=== PATIENT | female | born 1990 | race Caucasian/White ===

== ENCOUNTER 2016-08-30 13:27 | Emergency (ER) | payer OTHER ==
[2016-08-30 14:10] LABS: BILIRUBIN NEGATIVE (NEGATIVE); BLOOD NEGATIVE Ery/uL (NEGATIVE); CLARITY CLEAR (CLEAR); COLOR YELLOW (YELLOW); GLUCOSE (U) NORMAL (NORMAL); KETONE (U) NEGATIVE (NEGATIVE); LEUKOCYTES TRACE Leu/uL (NEGATIVE); NITRITE NEGATIVE (NEGATIVE); PROTEIN NEGATIVE (NEGATIVE); SPECIFIC GRAVITY 1.025 (1.001-1.030); UROBILINOGEN 0.2 mg/dL (0.2-1.0)
[2016-08-30 14:20] LABS: BASOPHIL 0.6 % (0-2); EOSINOPHIL 7.9 % (0-5); HCT 39.3 % (37.0-47.0); HGB 13.2 g/dl (12.5-16.0); LYMPHOCYTE 19.6 % (15-48); MCHC 33.6 g/dL (32.0-36.0); MCV 95.2 fL (78.0-100.0); MONOCYTE 6.1 % (0-12); MPV 9.7 fL (6.0-9.5); NEUTROPHIL 65.8 % (41-80); PLT 234 K/uL (150-400); RBC 4.13 M/uL (4.20-5.40); RDW 12.9 % (11.5-14.0)
[2016-08-30 14:40] LABS: ALBUMIN 4.2 g/dL (3.5-5.0); BILIRUBIN - TOTAL 0.5 mg/dL (0.1-1.0); CREATININE 0.9 mg/dL (0.5-1.0); GLOBULIN (CALCULATION) 2.8 g/dL (2.2-4.2); POTASSIUM 4.3 mmol/L (3.5-5.1)
[2016-08-30 15:08] LABS: BACTERIA 1+
== END 2016-08-30 15:14 | disposition home or self-care (01) ==
LOC: FER 13:27
PROVIDERS: Internal Medicine
DX: R53.1 Weakness (principal); R42 Dizziness and giddiness; F90.9 Attention-deficit hyperactivity disorder, unspecified type; F31.9 Bipolar disorder, unspecified; F43.10 Post-traumatic stress disorder, unspecified; F17.210 Nicotine dependence, cigarettes, uncomplicated
CPT/HCPCS: 36415; 80053; 81001; 85025; 93005